=== PATIENT | female | born 1980 | race Hispanic/Latino ===

== ENCOUNTER 2023-09-27 17:35 | Emergency (ER) | payer OTHER ==
[~2023-09-27] VITALS: Ht 167.6 cm; Wt 72.6 kg
[2023-09-27 18:15] LABS: BASOPHILS # (AUTO) 0.03 K/uL (0.00-0.20); BASOPHILS % (AUTO) 0.4 % (0.0-5.0); EOSINOPHILS # (AUTO) 0.12 K/uL (0.00-0.70); EOSINOPHILS % (AUTO) 1.7 % (0.0-8.0); HEMATOCRIT 36.2 % (36-48); IMMATURE GRANULOCYTE ABSOLUTE 0.01 K/uL (0-1); LYMPHOCYTES # (AUTO) 1.7 K/uL (1.0-4.8); LYMPHOCYTES % (AUTO) 23.9 % (21.0-51.0); MEAN CORPUSCULAR HEMOGLOBIN 31.2 pg (27.0-33.0); MEAN CORPUSCULAR HGB CONC 35.1 g/dL (32.0-36.0); MEAN CORPUSCULAR VOLUME 88.9 fL (79-99); MONOCYTES # (AUTO) 0.4 K/uL (0.1-1.0); MONOCYTES % (AUTO) 5.8 % (3.0-13.0); NEUTROPHILS % (AUTO) 68.1 % (40.0-77.0); PLATELET COUNT (AUTO) 265 K/uL (130-400); RED BLOOD CELL COUNT(AUTO) 4.07 MIL/uL (4.00-5.50); RED CELL DISTRIBUTION WIDTH 12.5 % (11.0-15.5); WHITE BLOOD COUNT (AUTO) 7.3 K/uL (4.8-10.8)
[2023-09-27 18:23] LABS: CREATININE 0.6 mg/dL (0.5-1.0); POTASSIUM 3.5 mmol/L (3.5-5.1)
[2023-09-27 18:27] LABS: ALBUMIN 3.6 g/dL (3.5-5.0); BILIRUBIN,TOTAL 0.4 mg/dL (0.2-1.0); TOTAL PROTEIN, SERUM 7.1 g/dL (6.0-8.3)
[2023-09-27 18:38] LABS: MAGNESIUM 1.9 mg/dL (1.80-2.40); THYROID STIMULATING HORMONE 1.25 uIU/mL (0.36-3.74)
[2023-09-27] MEDS: HYDROXYZINE 25 MG TABLET PO ONE (18:44)
[2023-09-27] MEDS: LACTATED RINGERS 1000ML 1,000 ML IV ONE (18:45)
[2023-09-27] MEDS ORDERED: HYDR50CA50 PO (18:53)
[2023-09-27 19:17] VITALS: BP 117/65; PULSE 77; RESP 17; O2SAT 96
== END 2023-09-27 19:28 | disposition home or self-care (01) ==
LOC: EDH 17:35
DX: F41.9 Anxiety disorder, unspecified (principal); M79.89 Other specified soft tissue disorders
CPT/HCPCS: 99284; 96360; 84443; 83735; 84484; 80053; 83690; 85025; 36415; 93005; J7120

== ENCOUNTER 2024-10-14 21:16 | Inpatient (IN) | payer SELFPAY ==
[~2024-10-14] VITALS: Ht 172.7 cm; Wt 70.7 kg
[~2024-10-14 21:16] MED LIST: HYDR50CA50 PO
--- NOTE | 2024-10-14 21:54 | ERN ---
General Chief Complaint: Insect Bite Stated Complaint: INSECT BITE Time Seen by MD: 21:26 History of Present Illness Initial Comments 44-year-old female comes in with a swollen red warm left palm from an insect bite. It was dark outside she does not remember seeing the insect that bit her. She comes in holding her left hand in pain. Timing/Duration: 1-3 hours Allergies: Coded Allergies: No Known Drug Allergies (Unverified Allergy, Unknown, 09/27/23) Home Meds Active Scripts Hydroxyzine Pamoate (Hydroxyzine Pamoate) 50 Mg Capsule, 50 MG PO QIDP PRN for ANXIETY/AGITATION, #40 CAP 2 Refills Prov:ROBERTO PAGAN Sr., MD 09/27/23 Past Medical History Past Medical History: No Pertinent History Past Surgical History: None Social History Social History: Lives with family Female( History) LMP: Aug 28, 2024 EENTM: (-) eye pain, (-) blurred vision, (-) tearing, (-) double vision, (-) ear pain, (-) ear discharge, (-) nose pain, (-) nose congestion, (-) throat pain, (-) Throat swelling, (-) mouth pain, (-) tooth pain, (-) mouth swelling, (-) other documentation Respiratory: (-) cough, (-) orthopnea, (-) short of breath, (-) stridor, (-) wheezing, (-) other documentation Cardiovascular: (-) chest pain, (-) edema, (-) palpitations, (-) syncope, (-) dyspnea on exertion, (-) other documentation Gastrointestinal/Abdominal: (-) nausea, (-) vomiting, (-) diarrhea, (-) abdominal pain, (-) abdominal distention, (-) constipation, (-) rectal bleeding, (-) dark stool/melena, (-) other documentation Genitourinary: (-) vaginal discharge, (-) vaginal bleeding, (-) dysuria, (-) frequency, (-) hematuria, (-) pain, (-) other documentation Musculoskeletal: (-) Neck pain, (-) back pain, (-) Flank Pain, (-) joint pain, (-) joint swelling, (-) muscle pain, (-) muscle stiffness, (-) gout, (-) other documentation Skin: (-) laceration, (-) contusion, (-) abrasion, (-) abscess, (-) rash, (-) change in color, (-) change in hair, (-) change in nails, (-) diaphoresis, (-) dryness, (-) other documentation Neuro: (-) altered mental status, (-) headache, (-) syncope, (-) paralysis, (-) numbness, (-) seizure, (-) pre-existing deficit, (-) tremors, (-) weakness, (-) dizziness, (-) slurred speech, (-) vertigo, (-) other documentation Physical Exam General Appearance: (+) moderate distress Orientation: (+) oriented x 3 Head/Face Trauma: No Eye: bilateral eye normal inspection, bilateral eye PERRL, bilateral eye EOMI Ear, Nose, Throat: (+) hearing grossly normal, (+) normal ENT inspection, (+) moist mucous membraine Neck: (+) normal inspection, (+) supple, (+) full range of motion Respiratory: (+) chest non-tender, (+) lungs clear, (+) well ventilated Respiratory Comment There was no wheezing when listening to the patient's lungs. Heart: (+) regular, (+) no gallop Vascular: (+) no edema, (+) normal peripheral pulse, (+) no JVD Extremities Comment Patient's left palm does have swelling in the MCP area of index middle and ring fingers the swelling extends proximally to the middle of her palm. And on the posterior surface of her left hand there is also swelling in the same distribution. The palm is warm and red. Results Laboratory and Microbiology Lab and Micro Result Laboratory Tests Test 10/14/24 23:05 White Blood Count 9.8 K/uL (4.8-10.8) Red Blood Count 4.08 MIL/uL (4.00-5.50) Hemoglobin 12.5 g/dL (12.0-16.0) Hematocrit 36.2 % (36-48) Mean Corpuscular Volume 88.7 fL (79-99) Mean Corpuscular Hemoglobin 30.6 pg (27.0-33.0) Mean Corpuscular Hemoglobin Concent 34.5 g/dL (32.0-36.0) Red Cell Distribution Width 12.6 % (11.0-15.5) Platelet Count 282 K/uL (130-400) Mean Platelet Volume 10.5 fL (7.5-10.5) Immature Granulocyte % (Auto) 0.2 % (0-1) Neutrophils (%) (Auto) 69.0 % (40.0-77.0) Lymphocytes (%) (Auto) 22.8 % (21.0-51.0) Monocytes (%) (Auto) 5.9 % (3.0-13.0) Eosinophils (%) (Auto) 1.7 % (0.0-8.0) Basophils (%) (Auto) 0.4 % (0.0-5.0) Neutrophils # (Auto) 6.7 K/uL (1.8-7.7) Lymphocytes # (Auto) 2.2 K/uL (1.0-4.8) Monocytes # (Auto) 0.6 K/uL (0.1-1.0) Eosinophils # (Auto) 0.17 K/uL (0.00-0.70) Basophils # (Auto) 0.04 K/uL (0.00-0.20) Absolute Immature Granulocyte (auto 0.02 K/uL (0-1) Nucleated Red Blood Cells 0.0 % (0.0-0.19) MDM I gave the patient a stat IV dose of 40 mg IV solu-medrol and 50 mg IV Benadryl. I advised the patient to keep her left hand elevated. We will get some films of her left hand to make sure there are no retained foreign objects. I did not see any broken skin on the patient's hand. Plain films of the patient's hand show no foreign objects. Patient has a normal white blood cell count, possibly ruling out cellulitis. I will order a procalcitonin. Patient is required multiple doses of IV narcotics to control her pain. I will call the hospitalist service to admit her. The hospitalist called back when I was seeing another patient. He talked to the nurse and read my notes. And agreed to accept the patient to his service. ED Course Orders Procedure Category Date Status Time Methylprednisolone PHA 10/14/24 Complete Succ 40mg (Solu-Medro 22:00 Diphenhydramine Hcl PHA 10/14/24 Complete (Benadryl Inj) 22:00 Hand 2+Vws Lt Limited RAD 10/14/24 Taken 21:55 Morphine 2mg Syg PHA 10/14/24 Complete (Morphine 2mg Syg) 22:00 Cbc With Differential LAB 10/14/24 Complete 22:56 Hydromorphone 0.5mg PHA 10/15/24 In Process Syg (Dilaudid 0.5mg 00:00 Admit Orders ADM 10/14/24 Transmitted 23:53 Current Medications Medications (Trade) Dose Ordered Sig/Lico Route PRN Reason Start Time Stop Time Status Last Admin Dose Admin Diphenhydramine HCl (BENAdryl INJ) 50 mg ONCE ONCE IV 10/14/24 22:00 10/14/24 22:01 DC 10/14/24 22:00 Hydromorphone HCl (DiLAUDid 0.5MG INJ) 0.5 mg ONCE ONCE IVP 10/15/24 00:00 10/15/24 00:01 10/14/24 23:54 Methylprednisolone Sodium Succinate (Solu-medROL 40MG) 40 mg ONCE ONCE IVP 10/14/24 22:00 10/14/24 22:01 DC 10/14/24 22:00 Morphine Sulfate (morPHINE 2MG SYG) 2 mg ONCE ONCE IVP 10/14/24 22:00 10/14/24 22:01 DC 10/14/24 22:05 Vital Signs Date Time Temp Pulse Resp B/P (MAP) Pulse Ox O2 Delivery O2 Flow Rate FiO2 10/14/24 22:10 98.4 74 20 130/79 100 Room Air* 0 21 10/14/24 21:23 98.2 74 17 125/74 98 Room Air* 0 21 10/14/24 21:17 98.4 90 18 123/68 98 Room Air DX & DISP Disposition: Inpatient Departure Impression: Primary Impression: Insect bite Condition: Stable Referrals: SELF,REFERRAL (PCP) DAVID BROWN MD October 14, 2024 21:54
[2024-10-14] MEDS: Solu-medROL 40MG VIAL IVP ONE (22:00)
[2024-10-14] MEDS: DiphenhydrAMINE HCL 50 MG/ML VIAL IV ONE (22:00)
[2024-10-14] MEDS: morPHINE 2 MG SYG IVP ONE (22:05)
[2024-10-14 23:12] LABS: BASOPHILS # (AUTO) 0.04 K/uL (0.00-0.20); BASOPHILS % (AUTO) 0.4 % (0.0-5.0); EOSINOPHILS # (AUTO) 0.17 K/uL (0.00-0.70); EOSINOPHILS % (AUTO) 1.7 % (0.0-8.0); HEMATOCRIT 36.2 % (36-48); IMMATURE GRANULOCYTE ABSOLUTE 0.02 K/uL (0-1); LYMPHOCYTES # (AUTO) 2.2 K/uL (1.0-4.8); LYMPHOCYTES % (AUTO) 22.8 % (21.0-51.0); MEAN CORPUSCULAR HEMOGLOBIN 30.6 pg (27.0-33.0); MEAN CORPUSCULAR HGB CONC 34.5 g/dL (32.0-36.0); MEAN CORPUSCULAR VOLUME 88.7 fL (79-99); MONOCYTES # (AUTO) 0.6 K/uL (0.1-1.0); MONOCYTES % (AUTO) 5.9 % (3.0-13.0); NEUTROPHILS # (AUTO) 6.7 K/uL (1.8-7.7); PLATELET COUNT (AUTO) 282 K/uL (130-400); RED BLOOD CELL COUNT(AUTO) 4.08 MIL/uL (4.00-5.50); RED CELL DISTRIBUTION WIDTH 12.6 % (11.0-15.5); WHITE BLOOD COUNT (AUTO) 9.8 K/uL (4.8-10.8)
[2024-10-14] MEDS: hydroMORPHone 0.5 MG SYG (0.5MG/0.5ML) IVP ONE (23:54)
--- NOTE | 2024-10-14 23:54 | HP ---
History of Present Illness Reason for Visit: hand pain History of Present Illness Ms. Villa is a 44-year-old female that was seen and examined today on 10/14/24. Patient is a good historian of personal health. Patient's Sameer Odell is at bedside. Patient states that she came to the emergency department with a chief complaint of hand pain. Onset was today at 8:00 p.m.. Location is to left hand dorsal aspect. Duration is constant. Character is described as burning. There was no alleviating factors. Symptoms are aggravated with movement. Patient denies any associated fever or chills. Patient reports that she thinks she may have been bitten by spider bloody was dark so she was not able to see if anything bit her. Today in the emergency department CBC is unremarkable. Left hand x-ray is pending radiology interpretation. No other diagnostic labs or imaging were ordered. Past Medical History ADDITIONAL PAST MEDICAL HISTORY: [Denies] SOCIAL HISTORY: [Negative for smoking, alcohol use, drug use. Patient lives with the . Patient is typically independent of all her ADLs.] SURGICAL HISTORY: [Denies] Review of Systems General: No Fever, No Chills, No Night Sweats, No Fatigue, No Malaise, No Appetite, No Other HEENT: No Head Aches, No Visual Changes, No Eye Pain, No Ear Pain, No Dysphasia, No Sinus Congestion, No Post Nasal Drip, No Sore Throat, No Other Pulmonary: No Dyspnea, No Cough, No Pleuritic Chest Pain, No Other Cardiovascular: No: Chest Pain, Palpitations, Orthopnea, Paroxysmal Noc. Dyspnea, Edema, Lt Headedness, Other Gastrointestinal: No: Nausea, Vomiting, Abdominal Pain, Diarrhea, Constipation, Melena, Hematochezia, Other Genitourinary: No Dysuria, No Frequency, No Incontinence, No Hematuria, No R etention, No Other Musculoskeletal: hand pain; No: other, neck pain, shoulder pain, arm pain, back pain, leg pain, foot pain Skin: No Urticaria, No Rash, No Other Neurological: No: Weakness, Numbness, Incoordination, Change in speech, Confusion, Seizures, Other Allergies: Coded Allergies: No Known Drug Allergies (Unverified Allergy, Unknown, 09/27/23) Scheduled PRN Hydroxyzine Pamoate (Hydroxyzine Pamoate), 50 MG PO QIDP PRN for ANXIETY/AGITATION Exam Vital Signs Vital Signs Date Time Temp Pulse Resp B/P (MAP) Pulse Ox O2 Delivery O2 Flow Rate FiO2 10/14/24 22:10 98.4 74 20 130/79 100 Room Air* 0 21 General Appearance: Alert, Oriented X3, Cooperative, mild distress HEENT: Atraumatic, EOMI Respiratory: Clear to auscultation, Normal air movement, NL respiratory effort Cardiovascular: Regular rhythm, Normal S1, Normal S2 Abdominal: Normal bowel sounds, No tenderness Extremities: Other (Positive swelling to left hand dorsal aspect) Skin: Other (Positive erythema to left hand dorsal aspect) Neuro: Normal gait, Normal speech, Strength at 5/5 X4 ext, Sensation intact, Cranial nerves 3-12 NL Psych/Mental Status: Mental status NL, Mood NL, Thoughts/Content NL Assessment/Plan ASSESSMENT: [ Left hand cellulitis, POA] PLAN: [ Admit patient to medical floor as inpatient status. Empiric antibiotic therapy with clindamycin. Check blood culture, follow up with the results As needed analgesia with morphine As-needed antipyretic, Tylenol GI prophylaxis, famotidine DVT prophylaxis, Lovenox ADVANCED CARE PLANNING 1. Which of the following were discussed? Hospice Care - Yes Therapeutic options - Yes Advance Directives - Yes -patient states she does not have any advance directives in place at this time, however has been can make decisions for her if she becomes unable. Other discussions - patient wishes to remain a full code at this time 2. Discussed with who? Patient 3. Voluntary nature of this service was explained to the patient? Yes 4. Amount of time spent - __ 16 minutes ____ 5. Reviewed by Physician? (if this service was performed by NPP) Yes This document was generated in part using voice recognition software, occasional wrong word or sound alike substitutions may have occurred due to the inherent limitations of voice recognition software. Read the chart carefully and recognize using context, where the substitutions have occurred. Although every effort was made to edit the content, hobber and typing errors may occur ATTESTATION BY PHYSICIAN I have seen and examined the patient. I reviewed the documentation, medical decision making, and treatment plan as noted by the mid-level provider above. I agree with the findings and plan of care. CARISA JOHNSON [facility] October 14, 2024 23:54
[2024-10-15] VITALS (7 sets, daily range): BP systolic 96–145; BP diastolic 51–73; PULSE 72–114; RESP 18–20; TEMP 97.4–98.7; O2SAT 99
[2024-10-15] MEDS ORDERED: ondanSETRON 4MG INJ IV PRN (02:30)
[2024-10-15] MEDS ORDERED: morPHINE 4 MG SYG IVP PRN (02:30)
[2024-10-15] MEDS ORDERED: acetaMINOPHEN 325 MG TAB PO PRN (02:30)
[2024-10-15] MEDS ORDERED: hydrALAZine 20MG/ML VIAL IV PRN (02:30)
[2024-10-15 03:21] LABS: BASOPHILS # (AUTO) 0.02 K/uL (0.00-0.20); BASOPHILS % (AUTO) 0.2 % (0.0-5.0); HEMATOCRIT 38.8 % (36-48); IMMATURE GRANULOCYTE ABSOLUTE 0.05 K/uL (0-1); LYMPHOCYTES # (AUTO) 0.7 K/uL (1.0-4.8); LYMPHOCYTES % (AUTO) 5.3 % (21.0-51.0); MEAN CORPUSCULAR HEMOGLOBIN 30.4 pg (27.0-33.0); MEAN CORPUSCULAR HGB CONC 33.2 g/dL (32.0-36.0); MEAN CORPUSCULAR VOLUME 91.3 fL (79-99); MONOCYTES # (AUTO) 0.1 K/uL (0.1-1.0); MONOCYTES % (AUTO) 0.9 % (3.0-13.0); NEUTROPHILS # (AUTO) 12.4 K/uL (1.8-7.7); NEUTROPHILS % (AUTO) 93.2 % (40.0-77.0); PLATELET COUNT (AUTO) 276 K/uL (130-400); RED BLOOD CELL COUNT(AUTO) 4.25 MIL/uL (4.00-5.50); RED CELL DISTRIBUTION WIDTH 12.6 % (11.0-15.5); WHITE BLOOD COUNT (AUTO) 13.3 K/uL (4.8-10.8)
[2024-10-15] MEDS: CLINDAMYCIN IVPB 900MG/50ML 50 ML IV SCH (03:25)
[2024-10-15 03:34] LABS: CREATININE 0.8 mg/dL (0.5-1.0); MAGNESIUM 1.9 mg/dL (1.80-2.40); PHOSPHORUS 2.3 mg/dL (2.5-4.9); POTASSIUM 3.8 mmol/L (3.5-5.1)
--- NOTE | 2024-10-15 09:11 | HMCIMG ---
Exam Type: HAND 2+VWS LT LIMITED Clinical Information: insect bite, r/o foreign object Comparison: None Findings: The bone examination is unremarkable. No fractures or dislocations are seen. No radiopaque foreign bodies are noted. Soft tissues are preserved. IMPRESSION: Normal examination.
--- NOTE | 2024-10-15 09:29 | NUR ---
DCP: HOME Pt currently lives with her Bayron Odell [phone] and small children in their home. Pt did not report any insecurities with food, senior care, and/or utilities. Pt does not have any DME, home health, or provider services. Pt is able to complete ADLs independently. SW offered pt community resources for health care however pt stated that she is currently registered with [facility] and sees a doctor and gets her meds there. At [place] pt will go home and will assist with transportation. Addendum: 10/15/24 at 0933 by HUANG WHITESIDE SS Amended: Links added.
[2024-10-15] MEDS: FAMOTIDINE 20MG TAB PO SCH (09:49)
[2024-10-15] MEDS: ENOXAPARIN SODIUM 40 MG/0.4 ML SYRINGE SQ SCH (09:49)
--- NOTE | 2024-10-15 12:15 | PN ---
[facility] PROGRESS NOTE Date of Service: October 15, 2024 Time of Service: 12:02 SUBJECTIVE: [44-year-old female with no known past medical history presented to the emergency department with left hand swelling. On evaluation, patient is left- hand swelling. Patient stated that she does not recall having to bit by insect. Patient is on clindamycin IV. Patient is afebrile, WBC unremarkable.] REVIEW OF SYSTEMS CONSTITUTIONAL: Denies fevers, chills, or night sweats. No unintentional weight loss reported. NEUROLOGICAL: Denies headache, amaurosis fugax, motor weakness, sensory deficit, vertigo/spinning sensation, gait abnormalities, or tremors. ENT: No hearing loss, otalgia, otorrhea, rhinitis, rhinorrhea, hoarseness, or sore throat. CARDIOVASCULAR: Denies any exertional angina, dyspnea on exertion, orthopnea, paroxysmal nocturnal dyspnea, palpitations, life-threatening arrhythmias, claudication. PULMONARY: Denies any shortness of breath, cough, phlegm/sputum, hemoptysis, pleuritic chest pain. SLEEP: Denies morning headaches, daytime somnolence or napping. Denies difficulty falling asleep, staying asleep, waking from sleep. Denies knowledge of snoring. GASTROINTESTINAL: Denies any type of dysphagia to either liquids or solids. Denies nausea, vomiting, pyrosis, early satiety, abdominal pain, diarrhea, constipation, or changes in stool consistency or caliber. Denies coffee-ground emesis, hematemesis, hematochezia, or melanotic stools. GENITOURINARY: Denies frequency, urgency, nocturia, hematuria or incontinence (Storage/Irritative symptoms.) Low urinary stream, straining to void, urinary intermittency or hesitancy, splitting of the voiding stream, terminal dribbling. ENDOCRINOLOGIC: Denies polyuria, polydipsia, polyphagia or heat/cold intolerances. HEMATOLOGIC: Denies thrombophilia/previous clots, or coagulopathy/bleeding disorders. ONCOLOGIC: Denies personal history of malignancy. DERMATOLOGIC: Denies rashes or pruritus. PSYCHIATRIC: Denies any suicidal or homicidal ideation. Denies hallucinations. PHYSICAL EXAM GENERAL APPEARANCE: The patient is awake, alert, and oriented, in no acute cardiopulmonary distress. NEUROLOGICAL: Cranial nerves II-XII grossly intact. Motor is 5/5 in bilateral upper and lower extremities proximal to distal. No sensory deficits. HEENT: Face is symmetric. Pupils are equal and reactive. Extraocular movements are intact. NECK: Supple. No JVD. No thyromegaly. No submental, submandibular, pre- /postauricular, occipital or supraclavicular lymphadenopathy. CHEST: Normal chest expansion. No Telemetry. LUNGS: Absence of any rales, rhonchi or any wheezing. CARDIOVASCULAR: Regular. S1 and S2 normal. No appreciable rubs, murmurs or gallops. ABDOMEN: Soft, nontender, and nondistended. There is no rebound, voluntary guarding, or rigidity. : Deferred. No Abbott. EXTREMITIES: Non-edematous and not cyanotic. No clubbing. Good capillary refill. SKIN: No skin breakdown. Vital Signs (last 8hr) Date Time Temp Pulse Resp B/P (MAP) Pulse Ox O2 Delivery O2 Flow Rate FiO2 10/15/24 09:49 99 Room Air* 0 21 10/15/24 07:00 97.3 94 18 134/66 99 Room Air 21 LABS: Laboratory: Test 10/15/24 03:00 10/14/24 23:05 Range/Units White Blood Count 13.3 #H 4.8-10.8 K/uL Red Blood Count 4.25 4.00-5.50 MIL/uL Hemoglobin 12.9 12.0-16.0 g/dL Hematocrit 38.8 36-48 % Mean Corpuscular Volume 91.3 79-99 fL Mean Corpuscular Hemoglobin 30.4 27.0-33.0 pg Mean Corpuscular Hemoglobin Concent 33.2 32.0-36.0 g/dL Red Cell Distribution Width 12.6 11.0-15.5 % Platelet Count 276 130-400 K/uL Mean Platelet Volume 10.5 7.5-10.5 fL Immature Granulocyte % (Auto) 0.4 0-1 % Neutrophils (%) (Auto) 93.2 H 40.0-77.0 % Lymphocytes (%) (Auto) 5.3 L 21.0-51.0 % Monocytes (%) (Auto) 0.9 L 3.0-13.0 % Eosinophils (%) (Auto) 0.0 0.0-8.0 % Basophils (%) (Auto) 0.2 0.0-5.0 % Neutrophils # (Auto) 12.4 H 1.8-7.7 K/uL Lymphocytes # (Auto) 0.7 L 1.0-4.8 K/uL Monocytes # (Auto) 0.1 0.1-1.0 K/uL Eosinophils # (Auto) 0.00 0.00-0.70 K/uL Basophils # (Auto) 0.02 0.00-0.20 K/uL Absolute Immature Granulocyte (auto 0.05 0-1 K/uL Nucleated Red Blood Cells 0.0 0.0-0.19 % White Cell Morphology Comment See comments Sodium Level 139 136-145 mmol/L Potassium Level 3.8 3.5-5.1 mmol/L Chloride Level 103 101-111 mmol/L Carbon Dioxide Level 24 21-32 mmol/L Blood Urea Nitrogen 12 7-18 mg/dL Creatinine 0.8 0.5-1.0 mg/dL Glomerular Filtration Rate Calc 93 >90 mL/min Random Glucose 161 H 70-105 mg/dL Total Calcium 8.8 8.5-10.1 mg/dL Phosphorus Level 2.3 L 2.5-4.9 mg/dL Magnesium Level 1.90 1.80-2.40 mg/dL Total Creatine Kinase 87 # 21-232 U/L Current Medications Medications (Trade) Dose Ordered Sig/Lico Route PRN Reason Start Time Stop Time Status Last Admin Dose Admin Acetaminophen (TYLenol 325MG TAB) 650 mg Q6H PRN PO TEMPERATURE GREATER THAN 101.5 10/15/24 02:30 11/14/24 02:29 Clindamycin HCl/ Dextrose 50 ml @ 100 mls/hr Q8H IV 10/15/24 02:30 10/25/24 02:29 10/15/24 11:17 100 MLS/HR Enoxaparin Sodium (Lovenox) 40 mg DAILY SQ 10/15/24 09:00 11/14/24 08:59 10/15/24 09:49 40 MG Famotidine (Pepcid 20mg Tab) 20 mg DAILY PO 10/15/24 09:00 11/14/24 08:59 10/15/24 09:49 20 MG Hydralazine HCl (APRESOLine 20MG INJ) 10 mg Q6H PRN IV For:SBP above 160;DBP above 90 10/15/24 02:30 11/14/24 02:29 Morphine Sulfate (morPHINE 4MG SYG) 4 mg Q4H PRN IVP SEVERE PAIN (7-10) 10/15/24 02:30 10/22/24 02:29 Ondansetron HCl (zoFRAN 4MG INJ) 4 mg Q6H PRN IV NAUSEA/VOMITING 10/15/24 02:30 11/14/24 02:29 DIAGNOSTICS / RADIOLOGY: [ ] ASSESSMENT: [Left hand cellulitis, POA] PLAN: [Patient will remain medical floor Patient will be continue with IV antibiotic clindamycin Continue with pain management We will order left hand ultrasound for soft tissue We will continue with regular diet Stat ESR and CRP We will repeat labs tomorrow CBC and BMP GI and DVT prophylaxis Case seen and examined with Dr. Chaidez, above plans formulated ] ATTESTATION BY PHYSICIAN I have seen and examined the patient. I reviewed the documentation, medical decision making, and treatment plan as noted by the mid-level provider above. I agree with the findings and plan of care. BRISA CHAIDEZ MD, [facility] October 15, 2024 12:15
[2024-10-15 12:37] LABS: HEMOGLOBIN A1C 5.6 % (4.0-6.0)
--- NOTE | 2024-10-15 14:41 | HMCIMG ---
Superficial ultrasound for possible hematoma Findings: No fluid collections or masses are seen. Significantly, there is no evidence of hematoma. No increased fluid throughout the visualized tissue planes is identified. No lymphadenopathy is identified. Impression: No evidence of hematoma or fluid collections or other abnormalities.
[2024-10-15 16:52] LABS: APPEARANCE,URINE CLEAR (CLEAR); BILIRUBIN,URINE NEGATIVE (NEGATIVE); COLOR,URINE YELLOW (YELLOW); GLUCOSE, URINE (UA) NEGATIVE (NEGATIVE); KETONES,URINE NEGATIVE (NEGATIVE); LEUKOCYTE ESTERASE ,URINE NEGATIVE Leu/uL (NEGATIVE); NITRATE,URINE NEGATIVE (NEGATIVE); OCCULT BLOOD,URINE NEGATIVE (NEGATIVE); PROTEIN,URINE 10 mg/dL (NEGATIVE); UROBILINOGEN,URINE 0.2 mg/dL (0.2-1.0)
[2024-10-15 16:55] LABS: ADD UA MICROSCOPIC YES
[2024-10-15 16:58] LABS: BACTERIA,URINE RARE /HPF (None Seen); MUCUS,URINE RARE LPF (None Seen); SQUAMOUS EPITHELIAL CELL,UR RARE /HPF (0-2)
--- NOTE | 2024-10-15 17:04 | CONS ---
CONSULTATION NOTE Date of Service: October 15, 2024 Reason for Consultation: hand cellulitis Requesting Physician: HISTORY OF PRESENT ILLNESS: 44 year old female who presented to the ER 10/14/24 complaining of unknown source of injury to the middle of her palmar left hand. She reported that she had been outside in the dark when something she didn't see stung or bit her left hand volarly near the third metacarpal head. She states that she tired applying garlic to it but when it continued to worsen, she came to the ER. She reports that when she came to the ER she had severe swelling and erythema of her hand in this region both on the volar and dorsal side. She reports that the swelling and pain was so bad that she couldn't close her hand. She received IV solu-med rol and IV benadryl in the ER. Xrays were negative for retained foreign body. Labs negative for elevated WBCs. I saw her on 10/15/24 around 3pm, and she reported significant improvement in the pain and swelling decreasing enough to allow her to make a fist. She was hoping we could tell her what bit her. REVIEW OF SYSTEMS CONSTITUTIONAL: Denies fever, chills, or fatigue. HEAD/FACE: No signs of trauma. EENT: Denies eye pain, blurred vision, double vision, or light sensitivity. RESPIRATORY: Denies shortness of breath, cough, wheezing CARDIOVASCULAR: Denies chest pain, palpitation, syncope GASTROINTESTINAL/ABDOMINAL: Denies abdominal pain, constipation, diarrhea, nausea or vomiting GENITOURINARY: Denies dysuria or hematuria. MUSCULOSKELETAL: Reports left hand pain & tenderness, denies trauma. INTEGUMENTARY: Report erythema, denies itch NEUROLOGICAL/PSYCH: Denies anxiety, depression, heat or cold intolerance. PAST MEDICAL HISTORY: denies PAST SURGICAL HISTORY: denies PAST SOCIAL HISTORY: denies x 3, right handed FAMILY HISTORY: denies Coded Allergies: No Known Drug Allergies (Unverified Allergy, Unknown, 09/27/23) PHYSICAL EXAM EYES: Anicteric. HENT: Moist Oral mucosa NECK: Supple LUNGS: Nonlabored breathing CARDIOVASCULAR: Regular rate ABDOMEN: Nondistended CENTRAL NERVOUS SYSTEM: Awake, alert, oriented x 3. No focal deficits. SKIN: No lacerations, no abrasions, no ecchymosis LYMPHATICS: No peripheral lymphadenopathy MUSCULOSKELETAL: Left upper extremity with mild erythema and slight swelling around volar and dorsal aspect of middle finger MCP region extending 3cm in diameter. No other wounds. No breaks in the skin. No tenderness. Finger range of motion is intact. Makes full composite fist. Motor intact to AIN, PIN, ulnar nerve. Sensation intact to median, ulnar, radial nerve. 2+ radial pulse. No gross deformities. EXTREMITIES: No cyanosis or clubbing BACK: Deferred GENITOURINARY: Deferred Vital Sign (Last 24 Hours) 10/15/24 10/15/24 09:49 12:00 Temp 98.1 Pulse 78 Resp 18 B/P (MAP) 117/68 Pulse Ox 97 O2 Delivery Room Air O2 Flow Rate 0 FiO2 21 Intake & Output (last 24hrs) 10/14/24 10/14/24 10/15/24 15:00 23:00 07:00 Intake Total 50.0 ml Output Total 250 ml Balance -200.0 ml LABS: Laboratory: Test 10/15/24 16:20 10/15/24 03:00 10/14/24 23:05 Range/Units Urine Color YELLOW YELLOW Urine Appearance CLEAR CLEAR Urine pH 6.0 5.0-8.[address] [place] 1.030 1.001-1.031 Urine Protein 10 H NEGATIVE mg/dL Urine Glucose (UA) NEGATIVE NEGATIVE mg/dL Urine Ketones NEGATIVE NEGATIVE mg/dL Urine Occult Blood NEGATIVE NEGATIVE Urine Nitrate NEGATIVE NEGATIVE Urine Bilirubin NEGATIVE NEGATIVE mg/dL Urine Urobilinogen 0.2 0.2-1.0 mg/dL Urine Leukocyte Esterase NEGATIVE NEGATIVE Kacy/uL Urine RBC 2-5 H 0-1 /HPF Urine WBC 2-5 H 0-1 /HPF Urine Squamous Epithelial Cells RARE 0-2 /HPF Urine Bacteria RARE None Seen /HPF White Blood Count 13.3 #H 4.8-10.8 K/uL Red Blood Count 4.25 4.00-5.50 MIL/uL Hemoglobin 12.9 12.0-16.0 g/dL Hematocrit 38.8 36-48 % Mean Corpuscular Volume 91.3 79-99 fL Mean Corpuscular Hemoglobin 30.4 27.0-33.0 pg Mean Corpuscular Hemoglobin Concent 33.2 32.0-36.0 g/dL Red Cell Distribution Width 12.6 11.0-15.5 % Platelet Count 276 130-400 K/uL Mean Platelet Volume 10.5 7.5-10.5 fL Immature Granulocyte % (Auto) 0.4 0-1 % Neutrophils (%) (Auto) 93.2 H 40.0-77.0 % Lymphocytes (%) (Auto) 5.3 L 21.0-51.0 % Monocytes (%) (Auto) 0.9 L 3.0-13.0 % Eosinophils (%) (Auto) 0.0 0.0-8.0 % Basophils (%) (Auto) 0.2 0.0-5.0 % Neutrophils # (Auto) 12.4 H 1.8-7.7 K/uL Lymphocytes # (Auto) 0.7 L 1.0-4.8 K/uL Monocytes # (Auto) 0.1 0.1-1.0 K/uL Eosinophils # (Auto) 0.00 0.00-0.70 K/uL Basophils # (Auto) 0.02 0.00-0.20 K/uL Absolute Immature Granulocyte (auto 0.05 0-1 K/uL Nucleated Red Blood Cells 0.0 0.0-0.19 % White Cell Morphology Comment See comments Erythrocyte Sedimentation Rate 11 0-20 MM/HR Sodium Level 139 136-145 mmol/L Potassium Level 3.8 3.5-5.1 mmol/L Chloride Level 103 101-111 mmol/L Carbon Dioxide Level 24 21-32 mmol/L Blood Urea Nitrogen 12 7-18 mg/dL Creatinine 0.8 0.5-1.0 mg/dL Glomerular Filtration Rate Calc 93 >90 mL/min Random Glucose 161 H 70-105 mg/dL Hemoglobin A1c 5.6 4.0-6.0 % Estimated Average Glucose (eAG) 114 70-126 mg/dL Total Calcium 8.8 8.5-10.1 mg/dL Phosphorus Level 2.3 L 2.5-4.9 mg/dL Magnesium Level 1.90 1.80-2.40 mg/dL C-Reactive Protein, Quantitative 2.80 0.5-3.0 mg/L Total Creatine Kinase 87 # 21-232 U/L DIAGNOSTICS / RADIOLOGY: left hand x-rays normal left hand US with no fluid collections ASSESSMENT: left hand swelling and erythema PLAN: I discussed with the patient that this appears to already be resolving with current treatment and is otherwise appearing self limited. I discussed with her the labs that have been checked to look for infection and ensure appropriate kidney function. I explained that we cannot tell her what stung/bit her. Follow up with PCP as needed KEVIN LEAVITT MD October 15, 2024 17:04
[2024-10-16 04:18] VITALS: BP 96/58; PULSE 81; RESP 18; TEMP 98.2
[2024-10-16 05:13] LABS: HEMATOCRIT 35.5 % (36-48); MEAN CORPUSCULAR HEMOGLOBIN 30.9 pg (27.0-33.0); MEAN CORPUSCULAR HGB CONC 34.4 g/dL (32.0-36.0); MEAN CORPUSCULAR VOLUME 89.9 fL (79-99); RED BLOOD CELL COUNT(AUTO) 3.95 MIL/uL (4.00-5.50); RED CELL DISTRIBUTION WIDTH 12.7 % (11.0-15.5); WHITE BLOOD COUNT (AUTO) 8.7 K/uL (4.8-10.8)
[2024-10-16 05:28] LABS: CREATININE 0.7 mg/dL (0.5-1.0); POTASSIUM 3.6 mmol/L (3.5-5.1)
[2024-10-16 08:00] VITALS: BP 105/60; PULSE 96; RESP 18; TEMP 97.6
[2024-10-16 10:12] VITALS: O2SAT 97
[2024-10-16] MEDS ORDERED: CLIN-141 PO (11:36)
[2024-10-16 12:00] VITALS: BP 115/62; PULSE 95; RESP 18; TEMP 98
--- NOTE | 2024-10-16 13:00 | NUR ---
PATIENT DISCHARGE PERIPHERAL IV DISCONTINUED WITHOUT COMPLICATIONS. CATHETER INTACT. DISCHARGE INSTRUCTIONS GIVEN. PRESCRIPTIONS SENT TO PHARMACY ON FILE. PATIENT AWARE TO F/U WITH PCP. PATIENT TO SCHEDULE APPOINTMENT WITH [facility] IN [place]. ALL QUESTIONS ANSWERED.
--- NOTE | 2024-10-16 17:15 | NUR ---
DC PLAN DR JULES HARDY SURGERY XRAY NEGATIVE. Addendum: 10/16/24 at 1717 by ISHA GARAY RN CM Amended: Links added.
--- NOTE | 2024-10-16 17:49 | DS ---
Discharge Summary Hospital Course Summary: Date of Admission: 10/14/2024 Date of Discharge: 10/16/2024 The patient is a 44-year-old female with no significant past medical history who presented to the emergency department on 10/14/2024 with complaints of left hand pain, swelling, and erythema. The patient did not recall any insect bite or injury. A soft tissue ultrasound was conducted, revealing no hematoma, fluid collection, or other abnormalities. Hospital Course: During her hospital stay, the patient was treated with intravenous clindamycin 900 mg. Initial laboratory tests showed a white blood cell count of 9.8, which increased to 13.3, and subsequently decreased to 8.7 by the day of discharge. The patient showed marked clinical improvement with a reduction in erythema, swelling, and pain. An MRI was recommended to further evaluate the condition; however, the patient was unable to proceed due to anxiety. Given the significant improvement in symptoms, the patient was deemed stable for discharge. Discharge Medications: Clindamycin 300 mg orally every 8 hours for 7 days Discharge Instructions: The patient is advised to follow up with her primary care physician within 2 to 3 days for further evaluation and management. Instructions were provided to return to the emergency department if she experiences fever, recurrent swelling, erythema, or pain. Follow-Up: The patient is advised to have a follow-up appointment with her primary care physician within 2 to 3 days post-discharge. Condition on Discharge: The patient was stable at the time of discharge, with significantly improved symptoms and minimal pain. She verbalized understanding of the discharge instructions and the importance of completing the antibiotic course. Counseling Provided: The patient was counseled on recognizing signs of worsening symptoms and the importance of seeking immediate medical attention if these occur. She acknowledged understanding and agreed to comply with the follow-up plan. Graduate Teaching Assistant(s): Dr. Bee Marie, orthopedic surgeon Procedure(s): [place] [address] [address] IMAGING REPORT Signed PATIENT: MONTY POLANCO MR#: [id number] : 1980 SEX: F AGE: 44 [facility] ORDER 1151 STATUS: ADM IN REPORT#: [id number] SERVICE 1157 REASON: left hand SWELLING ORDERING PHYSICIAN: SHAY BARNES PROCEDURE: SOFT UP EX - US SOFT TISSUE UPPER EXTREMITY Superficial ultrasound for possible hematoma Findings: No fluid collections or masses are seen. Significantly, there is no evidence of hematoma. No increased fluid throughout the visualized tissue planes is identified. No lymphadenopathy is identified. Impression: No evidence of hematoma or fluid collections or other abnormalities. DICTATED BY: CAMMY COREA MD DATE: 10/15/24 1438 ELECTRONICALLY SIGNED BY: CAMMY COREA MD DATE: 10/15/[address] [address] IMAGING REPORT Signed PATIENT: MONTY POLANCO MR#: [id number] : 1980 SEX: F AGE: 44 LOCATION: 4DH ORDER 55 STATUS: ADM IN REPORT#: [id number] SERVICE 54 REASON: insect bite, r/o foreign object ORDERING PHYSICIAN: DAVID BROWN MD PROCEDURE: HAND 2V LT - HAND 2+VWS LT LIMITED Exam Type: HAND 2+VWS LT LIMITED Clinical Information: insect bite, r/o foreign object Comparison: None Findings: The bone examination is unremarkable. No fractures or dislocations are seen. No radiopaque foreign bodies are noted. Soft tissues are preserved. IMPRESSION: Normal examination. DICTATED BY: CAMMY COREA MD DATE: 10/15/24 0908 ELECTRONICALLY SIGNED BY: CAMMY COREA MD DATE: 10/15/24 09 Assessment/Plan: Admitting diagnosis [Left hand cellulitis, POA] Discharge diagnosis [Left hand cellulitis, POA-resolved] Discharge Instructions: The patient is advised to follow up with her primary care physician within 2 to 3 days for further evaluation and management. Instructions were provided to return to the emergency department if she experiences fever, recurrent swelling, erythema, or pain. Home Medications: Active Scripts Clindamycin HCl (Clindamycin HCl) 300 Mg Capsule, 1 CAP PO TID for 7 Days, #21 CAP 0 Refills Prov:SHAY BARNES 10/16/24 Discontinued Scripts Hydroxyzine Pamoate (Hydroxyzine Pamoate) 50 Mg Capsule, 50 MG PO QIDP PRN for ANXIETY/AGITATION, #40 CAP 2 Refills Prov:ROBERTO PAGAN Sr., MD 09/27/23 New Medications: Clindamycin HCl (Clindamycin HCl) 300 Mg Capsule 1 CAP PO TID for 7 Days, #21 CAP 0 Refills Time spent arranging discharge: 31-60 minutes ATTESTATION BY PHYSICIAN I have seen and examined the patient. I reviewed the documentation, medical decision making, and treatment plan as noted by the mid-level provider above. I agree with the findings and plan of care. BRISA CHAIDEZ MD, [facility] October 16, 2024 17:49
== END 2024-10-16 14:15 | disposition home or self-care (01) | DRG 603 ==
LOC: EDH 21:16 → EDHIP 21:17 → 4DH 10-15 01:40
PROVIDERS: ADMIT Internal Medicine; ATTEND Internal Medicine
DX: L03.114 Cellulitis of left upper limb (principal); F41.9 Anxiety disorder, unspecified; Z79.899 Other long term (current) drug therapy; W57.XXXA Bitten or stung by nonvenomous insect and other nonvenomous arthropods, initial encounter
CPT/HCPCS: 36415; 73120; 76882; 80048; 81001; 82550; 83036; 83735; 84100; 85025; 85027; 85651; 86140; 87040; 96374; 96375; 99285; G0378; J1171; J1200; J1650; J2270; J2919; J3490